=== PATIENT | female | born 1980 | race Caucasian/White ===

== ENCOUNTER 2017-01-23 09:40 | Emergency (ER) | payer OTHER ==
[~2017-01-23] VITALS: Ht 167.6 cm; Wt 81.5 kg
[~2017-01-23 09:40] MED LIST: IBUP-1050 PO
[2017-01-23 09:49] VITALS: TEMP 37; Ht 167.6 cm; Wt 81.5 kg
--- NOTE | 2017-01-23 11:55 | DIAGNOSTIC IMAGING REPORT ---
RIGHT ELBOW MIN 3 VIEWS ROUTINE CLINICAL HISTORY: fall, pain Right COMPARISON: None. DISCUSSION: The bones and joint spaces appear intact. There is no evidence of fracture, dislocation or bony disease. There is no evidence for soft tissue swelling. IMPRESSION: Negative study. Electronically signed by: Magdy Davis M.D. 01/23/2017 11:53 AM Dictated Date/Time: 01/23/2017 11:48 AM
--- NOTE | 2017-01-23 11:59 | DIAGNOSTIC IMAGING REPORT ---
RIGHT FOREARM 2 VIEWS HISTORY: fall, pain Right COMPARISON: None. FINDINGS: There is no fracture or dislocation. Soft tissues are unremarkable. No radiopaque foreign bodies. IMPRESSION: No fractures. Electronically signed by: Ted Hester M.D. 01/23/2017 11:57 AM Dictated Date/Time: 01/23/2017 11:56 AM
--- NOTE | 2017-01-23 12:23 | DIAGNOSTIC IMAGING REPORT ---
RIGHT SHOULDER MIN 2 VIEWS ROUTINE CLINICAL HISTORY: fall, pain Right trauma. Pain. COMPARISON: None. DISCUSSION: Moderate degenerative change glenohumeral and acromioclavicular joints. No abnormal soft tissue calcifications. No fracture or dislocation. Calcified granuloma right upper lung. There is no evidence for soft tissue swelling. IMPRESSION: Moderate degenerative change. No acute process. Electronically signed by: Magdy Davis M.D. 01/23/2017 12:21 PM Dictated Date/Time: 01/23/2017 12:21 PM
[2017-01-23] MEDS ORDERED: IBUPROFEN 600 MG TAB PO STA (12:32)
--- NOTE | 2017-01-23 13:24 | DIAGNOSTIC IMAGING REPORT ---
CT OF THE RIGHT ELBOW CT DOSE: 950.97 mGy.cm HISTORY: Trauma. Pain. elbow pain Right TECHNIQUE: Multiaxial CT images of the right elbow were performed and reformatted in the sagittal and coronal plane without the use of contrast. COMPARISON: None. Findings: No evidence for fracture. Cortical margins are intact. No abnormal depressed reaction. No significant joint effusion. IMPRESSION: Negative study Electronically signed by: Magdy Davis M.D. 01/23/2017 1:23 PM Dictated Date/Time: 01/23/2017 1:20 PM
--- NOTE | 2017-01-23 14:01 | EMERGENCY ROOM VISIT NOTE ---
History Report prepared by Claudia: Zoila Tejada Under the Supervision of: Dr. Rabia Cruz D.O. First contact with patient: 10:12 Chief Complaint: ARM PAIN Stated Complaint: FELL-RIGHT ARM INJURY History of Present Illness The patient is a 36 year old female who presents to the Emergency Room with complaints of persistent right arm pain starting last night. The patient lost her balance yesterday and fell backwards and to the right. She is right handed and used her right elbow to break her fall. She fell into a wooden bench first, then into the wall, and then onto the ground. She reports numbness and warmth in the right hand. She also has some pain in her right shoulder. She denies any pain or injury in her hip, knee, head, or abdomen. She denies any chance of . She denies any other medical problems. Source of History: patient Onset: last night Position: arm (right) Quality: other (fall injury) Timing: other (persistent) Associated Symptoms: + numbness (right hand), No abdominal pain Note: Pt denies hip, knee, head injury. Review of Systems See HPI for pertinent positives & negatives. A total of 10 systems reviewed and were otherwise negative. Past Medical & Surgical Medical Problems: (1) Bacterial vaginosis (2) Dysfunctional uterine bleeding (3) History of appendectomy (4) No Known Active Medical Problems (5) ovarian cyst (6) Partial hysterectomy Family History Hypertension Social History Smoking Status: Current Every Day Smoker Alcohol Use: occasionally Drug Use: none Marital Status: Housing Status: lives with family Occupation Status: employed Allergies Coded Allergies: Metronidazole (Unverified Allergy, Mild, HIVES, 01/23/17) Sulfamethoxazole w/Trimethoprim (Verified Allergy, Unknown, HIVES, 01/23/17 ) Physical Exam Vital Signs Date Time Temp Pulse Resp B/P (MAP) Pulse Ox O2 Delivery O2 Flow Rate FiO2 01/23/17 14:13 70 18 129/62 96 Room Air 01/23/17 12:05 69 18 120/67 97 Room Air 01/23/17 09:49 37.0 62 20 126/89 98 Room Air Physical Exam GENERAL: alert, well appearing, well nourished, no distress, non-toxic EYE EXAM: normal conjunctiva, PERRL and EOM's grossly intact OROPHARYNX: no exudate, no erythema, lips, buccal mucosa, and tongue normal and mucous membranes are moist NECK: supple, no nuchal rigidity, no adenopathy, non-tender LUNGS: Clear to auscultation. Normal chest wall mechanics HEART: no murmurs, S1 normal and S2 normal ABDOMEN: abdomen soft, non-tender, normo-active bowel sounds, no masses, no rebound or guarding. BACK: Back is symmetrical on inspection and there is no deformity, no midline tenderness, no CVA tenderness. SKIN: no rashes and no bruising UPPER EXTREMITIES: pain in the mid humerus, medial epicondyle, and olecranon process, mild edema noted, decreased ROM secondary to pain, normal distal pulses and capillary refill, no other obvious deformity, compartments soft, no paresthesias. Mild numbness with movement of the 3rd right digit, but has FROM of all digits and normal sensory testing of hand/digits. LOWER EXTREMITIES: No pitting edema. NEURO EXAM: Normal sensorium, cranial nerves II-XII grossly intact, normal speech, no gross weakness of arms, no gross weakness of legs. Medical Decision & Procedures ER Provider Diagnostic Interpretation: Xray results have been interpreted by the radiologist and me. Radiology results have been interpreted by the radiologist and reviewed by me. RIGHT ELBOW MIN 3 VIEWS ROUTINE CLINICAL HISTORY: fall, pain Right COMPARISON: None. DISCUSSION: The bones and joint spaces appear intact. There is no evidence of fracture, dislocation or bony disease. There is no evidence for soft tissue swelling. IMPRESSION: Negative study. Electronically signed by: Magdy Davis M.D. 01/23/2017 11:53 AM Dictated Date/Time: 01/23/2017 11:48 AM RIGHT FOREARM 2 VIEWS HISTORY: fall, pain Right COMPARISON: None. FINDINGS: There is no fracture or dislocation. Soft tissues are unremarkable. No radiopaque foreign bodies. IMPRESSION: No fractures. Electronically signed by: Ted Hester M.D. 01/23/2017 11:57 AM Dictated Date/Time: 01/23/2017 11:56 AM RIGHT SHOULDER MIN 2 VIEWS ROUTINE CLINICAL HISTORY: fall, pain Right trauma. Pain. COMPARISON: None. DISCUSSION: Moderate degenerative change glenohumeral and acromioclavicular joints. No abnormal soft tissue calcifications. No fracture or dislocation. Calcified granuloma right upper lung. There is no evidence for soft tissue swelling. IMPRESSION: Moderate degenerative change. No acute process. Electronically signed by: Magdy Davis M.D. 01/23/2017 12:21 PM Dictated Date/Time: 01/23/2017 12:[address] OF THE RIGHT ELBOW CT DOSE: 950.97 mGy.cm HISTORY: Trauma. Pain. elbow pain Right TECHNIQUE: Multiaxial CT images of the right elbow were performed and reformatted in the sagittal and coronal plane without the use of contrast. COMPARISON: None. Findings: No evidence for fracture. Cortical margins are intact. No abnormal depressed reaction. No significant joint effusion. IMPRESSION: Negative study Electronically signed by: Magdy Davis M.D. 01/23/2017 1:23 PM Dictated Date/Time: 01/23/2017 1:20 PM Medications Administered Medications (Trade) Dose Ordered Sig/Vanna Route Start Time Stop Time Status Last Admin Dose Admin Ibuprofen (Motrin Tab) 600 mg NOW STAT PO 01/23/17 12:32 01/23/17 12:33 DC 01/23/17 12:52 600 MG ED Course 1014: The patient was evaluated in room A11B. A complete history and physical exam was performed. 1231: I reevaluated the patient. She is still having pain with decreased ROM. 1232: Ibuprofen 600 mg PO. 1340: Upon reevaluation, the patient is feeling better. I discussed the findings and the treatment plan with the patient. She verbalizes agreement and understanding. She was discharged home. Medical Decision Differential diagnosis: Etiologies such as fracture, dislocation, neurovascular compromise, compartment syndrome, soft tissue injury, as well as others were entertained. Medication Reconciliation: I attest that I have personally reviewed the patient' s current medication list. Blood pressure screening: Patient was found to have normal blood pressure on screening and does not require follow-up. Pt with significant pain/swelling and decr ROM to right elbow after fall the prior night. Imaging negative. Pt placed in a sling and advised close f/u as a precaution. Discussed sx to watch/return for, need for ortho f/u if not improving. Doubt additional occult traumatic injury. Pt with no other complaints during exam. Impression Primary Impression: Arm pain, right Additional Impressions: Fall Contusion Scribe Attestation The scribe's documentation has been prepared under my direction and personally reviewed by me in its entirety. I confirm that the note above accurately reflects all work, treatment, procedures, and medical decision making performed by me. Departure Information Dispostion Home / Self-Care Referrals Jomar Dill M.D. (PCP) Patient Instructions My [facility] Additional Instructions Please rest the arm and use the sling over the course of the week. If the pain begins to ease up, you may try doing some slow movement of the arm. Do not do any lifting or strenuous activity until the arm is healed and or you've been cleared by her family doctor or orthopedic surgeon. You may use Tylenol and ibuprofen as needed for pain. If you notice worsening pain, numbness or tingling, increased swelling, discoloration, change in temperature, increasing weakness, or you've any other new concerns, please return the emergency room. Problem Qualifiers Additional Impressions: Fall Encounter type: initial encounter Qualified Codes: W19.XXXA - Unspecified fall, initial encounter Contusion Encounter type: initial encounter Contusion area: elbow Laterality: right Qualified Codes: S50.01XA - Contusion of right elbow, initial encounter
[2017-01-23 14:13] VITALS: BP 129/62; PULSE 70; O2SAT 96
== END 2017-01-23 14:23 | disposition home or self-care (01) ==
LOC: C.EDB 09:42 → C.EDA 14:23
DX: M79.601 Pain in right arm (principal); T14.8 Other injury of unspecified body region; W19.XXXA Unspecified fall, initial encounter; N93.8 Other specified abnormal uterine and vaginal bleeding; Z82.49 Family history of ischemic heart disease and other diseases of the circulatory system; F17.210 Nicotine dependence, cigarettes, uncomplicated